=== PATIENT | male | born 1990 | race Caucasian/White ===

== ENCOUNTER 2017-05-03 09:27 | Day surgery (SDC) | payer OTHER ==
[2017-04-28 14:44] VITALS: BMI 25.0
[~2017-05-03 09:27] MED LIST: DEXAMETHASONE SOD PHOSPHATE 4 MG/ML 1 ML VIAL IV ONE; FAMOTIDINE 20 MG/2 ML VIAL IV ONE; LACTATED RINGERS 1,000 ML IV SCH; LIDOCAINE 1% 20 ML VIAL (10MG/ML) FOR IV START INTRADERMA PRN; ONDANSETRON 4 MG/2 ML VIAL IVP ONE; ceFAZolin 1,000 MG in DEXTROSE/WATER 1 50ML.BAG IV ONE; fentaNYL (PF) 50 MCG/ML 2 ML AMP IV PRN
[2017-05-03 09:56] VITALS: RESP 16
[2017-05-03] MEDS: OXYMETAZOLINE 0.05% NASL SPRAY 1 SPRAY BOTTLE NASAL ONE ×5 (09:58→10:19)
[2017-05-03] MEDS ORDERED: MIDAZOLAM 2 MG/2 ML VIAL ONE (10:44)
[2017-05-03] MEDS ORDERED: SUCCINYLCHOLINE CHLORIDE 100 MG/5 ML SYR IV ONE (10:44)
[2017-05-03] MEDS ORDERED: LIDOCAINE 1% INJ 10MG/ML (20 ML MDV) ONE (10:44)
[2017-05-03] MEDS ORDERED: DEXAMETHASONE SOD PHOS (MDV) 100 MG/10 ML VIAL ONE (10:44)
[2017-05-03] MEDS ORDERED: PROPOFOL 10 MG/ML 20 ML VIAL IV ONE (10:44)
[2017-05-03] MEDS ORDERED: fentaNYL (PF) 50 MCG/ML 2 ML AMP ONE (10:44)
[2017-05-03] MEDS ORDERED: LIDOCAINE 1%/EPI 1:200,000 MPF 10 ML VIAL SQ ONE ×2 (11:10)
[2017-05-03] MEDS ORDERED: BACITRACIN 500 UNIT/GM OINT 28.4 GM TUBE TOPICAL ONE (11:22)
--- NOTE | 2017-05-03 11:38 | P.OP ---
Date of Procedure: 05/03/17 Preoperative Diagnosis: Deviated nasal septum Inferior turbinate hypertrophy Postoperative Diagnosis: Same Procedure(s) Performed: Septoplasty Outfracture and submucous resection of the inferior turbinates Anesthesia: YISSELA Surgeon: Nolberto Navas Estimated Blood Loss (ml): 5 Pathology: other (Nasal septal bone and cartilage) Condition: stable Disposition: PACU Indications for Procedure: This is a 26-year-old white male with a history of chronic nasal airway obstruction bilaterally but left greater than right with notably the nasal septum as well as inferior turbinate hypertrophy Operative Findings: Nasal septum deviated to the left, inferior turbinate hypertrophy bilaterally Description of Procedure: The patient was brought in the operative suite and placed in a supine position. The patient underwent induction of general anesthesia with oral endotracheal intubation without difficulty. The patient was prepped and draped in usual aseptic fashion. 1% lidocaine with 1-100,000 epinephrine was infused submucosally both sides nasal septum. While this was taking vasoconstrictive effect the inferior turbinates were infractured with the Thurston elevator. Partial submucous resection of the inferior turbinates was performed with Coblation thus ablating a portion of the submucosal soft tissue and then outfractured with the Thurston elevator. A left hemitransfixion incision was made with the mucoperichondrial and mucoperiosteal flap on the left elevated. Bony cartilaginous junction was disarticulated and mucoperiosteal flap on the right was elevated. Bony nasal septal deformities were removed Kyra forceps and an inferior cartilaginous strip was removed leaving a full 1.5 cm caudal strut. Checking intranasally this corrected the nasoseptal deformities and the hemitransfixion incision was closed with a running 4-0 chromic. Bilateral Pierson airway splints coated bacitracin ointment were placed and sutured trans-septally with a 4-0 Vicryl suture. The patient was suctioned in oral gastric fashion. The patient was allowed to emerge from general anesthesia having tolerated procedure well was extubated in the operating suite and transferred to postop recovery area in satisfactory condition.
[2017-05-03 11:42] VITALS: TEMP 97.2
[2017-05-03 13:02] VITALS: BP 130/85; PULSE 59
== END 2017-05-03 13:25 | disposition home or self-care (01) ==
LOC: OR 09:27
PROVIDERS: ATTEND Otolaryngology
DX: J34.2 Deviated nasal septum (principal); J34.3 Hypertrophy of nasal turbinates; F17.210 Nicotine dependence, cigarettes, uncomplicated
CPT/HCPCS: 88300; 30520; 30930; J2250; J1100 ×2; J2405; J2001; J3010; J0330; J2704

== ENCOUNTER → 2017-12-26 | Outpatient (CLI) | payer OTHER ==
--- NOTE | 2017-12-26 21:54 | MR ---
EXAMINATION TYPE: MR knee LT wo con DATE OF EXAM: 12/26/2017 COMPARISON: Plain film 12/13/2017 HISTORY: Pain in left knee TECHNIQUE: Multiplanar, multisequence imaging of the left knee is performed without IV contrast. FINDINGS: MEDIAL MENISCUS: Posterior horn of the medial meniscus shows an undersurface tear, linear increased s ignal extends to the articular surface LATERAL MENISCUS: Anterior and posterior horns are intact without tear. CRUCIATE LIGAMENTS: The anterior and posterior cruciate ligaments are intact and unremarkable. COLLATERAL LIGAMENTS: The medial collateral ligament and lateral collateral ligament complex are inta ct and unremarkable. EXTENSOR MECHANISM: Visualized quadriceps and patellar tendons are intact. EFFUSION: No significant suprapatellar joint effusion. POPLITEAL CYST: No popliteal/cobian cyst. TRICOMPARTMENT SPACES: Maintained CARTILAGE: At the medial femoral condyle anteriorly there is some mild cartilage irregularity BONE MARROW SIGNAL: Subchondral marrow signal change present at the medial femoral condyle OTHER: No additional significant abnormality is appreciated. IMPRESSION: Posterior horn medial meniscus tear. Reactive possible reactive marrow signal changes at the medial f emoral condyle peripherally
== END | disposition home or self-care (01) ==
LOC: RADMRIMAIN 20:45
PROVIDERS: ATTEND Orthopaedic Surgery
DX: S83.242A Other tear of medial meniscus, current injury, left knee, initial encounter (principal)

== ENCOUNTER → 2018-03-14 | Outpatient (CLI) | payer OTHER ==
[2018-03-14 16:56] LABS: Basophils % (A) 0 %; Eosinophils # (A) 0.2 k/uL (0-0.7); Eosinophils % (A) 3 %; HCT 44.8 % (39.0-53.0); HGB 15.1 gm/dL (13.0-17.5); Lymphocytes # (A) 2.5 k/uL (1.0-4.8); Lymphocytes % (A) 36 %; MCH 30.8 pg (25.0-35.0); MCHC 33.7 g/dL (31.0-37.0); MCV 91.4 fL (80.0-100.0); Mean Platelet Volume 6.5; Monocytes # (A) 0.4 k/uL (0-1.0); Monocytes % (A) 6 %; Neutrophils # (A) 3.7 k/uL (1.3-7.7); Neutrophils % (A) 53 %; Platelet Count 314 k/uL (150-450); RDW 12.7 % (11.5-15.5); WBC 6.9 k/uL (3.8-10.6)
[2018-03-14 17:04] LABS: Potassium 4.1 mmol/L (3.5-5.1)
== END | disposition home or self-care (01) ==
LOC: LABPAT 15:57
PROVIDERS: ATTEND Orthopaedic Surgery
DX: Z01.812 Encounter for preprocedural laboratory examination (principal); M23.92 Unspecified internal derangement of left knee
CPT/HCPCS: 36415; 80051; 85025

== ENCOUNTER 2018-03-22 13:08 | Day surgery (SDC) | payer OTHER ==
[2018-03-21 08:17] VITALS: BMI 25.0
--- NOTE | 2018-03-21 20:11 | HP ---
HISTORY AND PHYSICAL REASON FOR ADMISSION: Surgery is 03/22/2018 HISTORY OF PRESENT ILLNESS: Kulwinder Wood is a 27-year-old patient seen with progressive left knee pain. We discussed treatment options. He elected to proceed with arthroscopy. Consent was obtained. PAST MEDICAL HISTORY: Noncontributory. PAST SURGICAL HISTORY: Noncontributory. DAILY MEDICATIONS: None. ALLERGIES: SEPTRA. SOCIAL HISTORY: Currently smokes cigarettes. PHYSICAL EXAMINATION: Evaluation of the left knee: Range of motion 0-130 degrees. Tenderness medial joint line. Positive medial Ryann's. Ligaments stable. Hip rotation without pain. Distal neurovascular exam intact. RADIOGRAPHS: Left knee radiographs fail to reveal any osseous abnormality. An MRI of the left knee revealed a medial meniscal tear. IMPRESSION: 1. Internal derangement, left knee with medial meniscal tear. 2. Tobacco use. PLAN: Left knee arthroscopy with partial meniscectomy and debridement. Surgery scheduled for 03/22/2018. MMODL / IJN: [id number] /
[~2018-03-22 13:08] MED LIST changes: +DEXAMETHASONE SOD PHOSPHATE 10 MG/ML 1 ML VIAL IV ONE; -DEXAMETHASONE SOD PHOSPHATE 4 MG/ML 1 ML VIAL IV ONE; -FAMOTIDINE 20 MG/2 ML VIAL IV ONE; +HYDROmorphone 1 MG/ML 1 ML SYRINGE IVP PRN; +MIDAZOLAM 2 MG/2 ML VIAL IV PRN; +SCOPOLAMINE 1.5MG/72HR PATCH TRANSDERM ONE; -ceFAZolin 1,000 MG in DEXTROSE/WATER 1 50ML.BAG IV ONE; +ceFAZolin IN SWFI 2 GM/20 ML SYRINGE IVP ONE; -fentaNYL (PF) 50 MCG/ML 2 ML AMP IV PRN
[2018-03-22 14:36] VITALS: TEMP 98.3
[2018-03-22] MEDS ORDERED: fentaNYL (PF) 50 MCG/ML 2 ML AMP ONE (14:54)
[2018-03-22] MEDS ORDERED: PROPOFOL 10 MG/ML 20 ML VIAL IV ONE (14:54)
[2018-03-22] MEDS ORDERED: KETOROLAC 30 MG/ML 1 ML VIAL ONE (14:54)
[2018-03-22] MEDS ORDERED: LIDOCAINE 1% INJ 10MG/ML (20 ML MDV) ONE (14:54)
[2018-03-22] MEDS ORDERED: MIDAZOLAM 2 MG/2 ML VIAL ONE (14:54)
[2018-03-22] MEDS ORDERED: BUPIVACAIN-EPI 0.25%-1:200,000 30 ML VIAL INTRAARTIC ONE (15:15)
--- NOTE | 2018-03-22 15:45 | P.OP ---
Date of Procedure: 03/22/18 Preoperative Diagnosis: Internal derangement left knee Postoperative Diagnosis: 1. Tear medial meniscus left knee 2. Medial plica left knee 3. Reactive synovitis medial and suprapatellar compartments left knee Procedure(s) Performed: 1. Arthroscopic partial medial meniscectomy left knee 2. Arthroscopic resection medial plica left knee 3. Arthroscopic partial synovectomy medial and suprapatellar compartments left knee Anesthesia: GETA, local Surgeon: Jaime Heredia Estimated Blood Loss (ml): 5 Pathology: none sent Condition: stable Disposition: PACU Indications for Procedure: 27-year-old patient seen with progressive left knee pain. After treatment options were discussed elected to proceed with arthroscopy. Operative Findings: see description of procedure Description of Procedure: Patient was taken to the operative suite. Patient underwent a general anesthetic by the department of anesthesia. Patient was given preoperative antibiotics. The left lower extremity was placed in a well-padded arthroscopic leg polk. The left leg was prepped and draped in the normal sterile orthopedic fashion. A lateral parapatellar and suprapatellar incision was made. Trochars were inserted. Arthroscopy was initiated. Suprapatellar pouch revealed diffuse thick reactive synovitis. The patellofemoral joint appeared to articulate congruently. There was grade 1 chondromalacia of the patella with no osteochondral tears present. The scope was guided into the medial gutter. There was a medial plica that seem to impinge along the medial femoral condyle with range of motion. The scope was then guided into the medial compartment. A medial parapatellar incision was made. Trocar inserted followed by probe. There was a small radial tear posterior horn medial meniscus. There was some reactive synovitis anteriorly. There was some mild grade 1 chondromalacia of the medial femoral condyle present. I performed a partial medial meniscectomy down to stable tissue. I performed a partial synovectomy decompressing the reactive synovitis. The residual meniscus was stable. There was good decompression of the synovitis. Scope and probe were then guided into the intercondylar notch. Cruciates were identified, probed and found to be stable. The scope and probe were then guided into lateral compartment. Lateral meniscus was probed and found to be stable. The lateral compartment was otherwise unremarkable. There was no synovitis present. The scope was in guided back into the suprapatellar compartment. I introduced a motorized shaver into the super patellar compartment. I made my way into the medial gutter and resected that medial plica. I debrided some piecemeal fragments of meniscus I encountered in the suprapatellar compartment. I performed a partial synovectomy decompressing the reactive synovitis. The shaver was removed. I took one more look on the entire knee, there was no residual debris. Instruments were now removed from the joint. The joint was infiltrated with .25% Marcaine. Steri-Strips were applied to the portal sites. Sterile dressings were applied. The patient was placed into a JAREN hose. No tourniquet was utilized. The patient was awakened, transferred to a bed and taken to recovery stable satisfactory condition.
[2018-03-22 16:05] VITALS: RESP 16
[2018-03-22 17:21] VITALS: BP 103/65; PULSE 69
== END 2018-03-22 17:48 | disposition home or self-care (01) ==
LOC: OR 13:08
PROVIDERS: ATTEND Orthopaedic Surgery
DX: S83.242A Other tear of medial meniscus, current injury, left knee, initial encounter (principal); M67.52 Plica syndrome, left knee; M65.9 Synovitis and tenosynovitis, unspecified; M22.42 Chondromalacia patellae, left knee; F17.210 Nicotine dependence, cigarettes, uncomplicated; Z79.1 Long term (current) use of non-steroidal anti-inflammatories (NSAID); Z88.1 Allergy status to other antibiotic agents; Z88.2 Allergy status to sulfonamides
CPT/HCPCS: 29881; J2250; J1100; J2405; J2001; J3010; J1885; J2704; J0690

== ENCOUNTER → 2020-04-24 | Outpatient (CLI) | payer BC ==
--- NOTE | 2020-04-24 20:39 | MR ---
EXAMINATION TYPE: MR knee LT wo con DATE OF EXAM: 04/24/2020 COMPARISON: MR 12/16/2017. HISTORY: Left knee pain for 3 months. TECHNIQUE: Multiplanar, multisequence imaging of the left knee is performed without IV contrast. FINDINGS: MEDIAL MENISCUS: Progression of horizontal oblique tear of the posterior horn, extending to the body. LATERAL MENISCUS: Anterior and posterior horns are intact without tear. CRUCIATE LIGAMENTS: The anterior and posterior cruciate ligaments are intact and unremarkable. COLLATERAL LIGAMENTS: The medial collateral ligament and lateral collateral ligament complex are inta ct and unremarkable. EXTENSOR MECHANISM: Visualized quadriceps and patellar tendons are intact. EFFUSION: Small knee joint effusion. POPLITEAL CYST: No popliteal/cobian cyst. TRICOMPARTMENT SPACES: Mild narrowing of the medial compartment. CARTILAGE: No significant tricompartmental chondral defect. BONE MARROW SIGNAL: No focal abnormal marrow signal is appreciated. OTHER: No additional significant abnormality is appreciated. IMPRESSION: Progression of medial meniscus posterior horn and body tear
== END | disposition home or self-care (01) ==
LOC: RADMRIMAIN 19:10
PROVIDERS: ATTEND Orthopaedic Surgery
DX: S83.242A Other tear of medial meniscus, current injury, left knee, initial encounter (principal)

== ENCOUNTER → 2020-06-22 | Outpatient (CLI) | payer BC ==
[2020-06-22 13:52] LABS: Basophils % (A) 0 %; Eosinophils # (A) 0.3 k/uL (0-0.7); Eosinophils % (A) 4 %; HCT 47.9 % (39.0-53.0); Lymphocytes # (A) 2.2 k/uL (1.0-4.8); Lymphocytes % (A) 35 %; MCH 31.1 pg (25.0-35.0); MCHC 33.5 g/dL (31.0-37.0); MCV 92.9 fL (80.0-100.0); Mean Platelet Volume 6.6; Monocytes # (A) 0.4 k/uL (0-1.0); Monocytes % (A) 6 %; Neutrophils # (A) 3.3 k/uL (1.3-7.7); Neutrophils % (A) 52 %; Platelet Count 290 k/uL (150-450); RBC 5.15 m/uL (4.30-5.90); RDW 12.3 % (11.5-15.5); WBC 6.3 k/uL (3.8-10.6)
== END | disposition home or self-care (01) ==
LOC: LABPAT 13:16
PROVIDERS: ATTEND Orthopaedic Surgery
DX: Z01.812 Encounter for preprocedural laboratory examination (principal); M23.92 Unspecified internal derangement of left knee
CPT/HCPCS: 80051; 85025

== ENCOUNTER 2020-07-02 13:01 | Day surgery (SDC) | payer BC ==
[2020-06-30 11:46] VITALS: BMI 26.4
--- NOTE | 2020-07-01 16:16 | HP ---
HISTORY AND PHYSICAL DATE OF SURGERY: 07/02/2020 Kulwinder Wood is a 29-year-old gentleman seen with progressive left knee pain. We discussed options for treatment. He elected to proceed with arthroscopy. Consent was obtained. PAST MEDICAL HISTORY: Noncontributory. PAST SURGICAL HISTORY: Knee arthroscopy. DAILY MEDICATIONS: None. ALLERGIES: SEPTRA. SOCIAL HISTORY: He smokes one pack of cigarettes daily. PHYSICAL EVALUATION OF THE LEFT KNEE: Range of motion is zero to 130. Mild effusion. Tenderness, medial joint line. Positive medial Ryann's. Ligaments stable. Hip rotation without pain. Distal neurovascular exam intact. RADIOGRAPHS: Left knee radiographs revealed mild osteoarthritis. MRI left knee revealed medial meniscal tear. IMPRESSION: Internal derangement of left knee with medial meniscal tear. PLAN: Left knee arthroscopy with partial meniscectomy, partial synovectomy and debridement. MMODL / IJN: [id number] /
[~2020-07-02 13:01] MED LIST changes: -DEXAMETHASONE SOD PHOSPHATE 10 MG/ML 1 ML VIAL IV ONE; +DEXAMETHASONE SOD PHOSPHATE 4 MG/ML 1 ML VIAL IV ONE; +HYDROmorphone 0.5 MG/0.5 ML SYRINGE IVP PRN; -HYDROmorphone 1 MG/ML 1 ML SYRINGE IVP PRN; +LIDOCAINE 1% (10MG/ML) FOR IV START INTRADERMA PRN; -LIDOCAINE 1% 20 ML VIAL (10MG/ML) FOR IV START INTRADERMA PRN; -SCOPOLAMINE 1.5MG/72HR PATCH TRANSDERM ONE; -ceFAZolin IN SWFI 2 GM/20 ML SYRINGE IVP ONE
[2020-07-02] MEDS ORDERED: PROPOFOL 10 MG/ML 20 ML VIAL IV ONE (15:27)
[2020-07-02] MEDS ORDERED: fentaNYL (PF) 50 MCG/ML 2 ML AMP ONE (15:27)
[2020-07-02] MEDS ORDERED: MIDAZOLAM 2 MG/2 ML VIAL ONE (15:27)
[2020-07-02] MEDS ORDERED: LIDOCAINE 1% INJ 10MG/ML (20 ML MDV) ONE (15:27)
[2020-07-02] MEDS ORDERED: BUPIVACAINE (PF) 0.25% 30 ML VIAL INTRAARTIC ONE (15:32)
[2020-07-02 16:19] VITALS: TEMP 96.8
--- NOTE | 2020-07-02 16:20 | P.OP ---
Date of Procedure: 07/02/20 Preoperative Diagnosis: Internal derangement left knee Postoperative Diagnosis: 1. Bucket-handle tear medial meniscus left knee 2. Reactive synovitis medial, lateral and suprapatellar compartments left knee Procedure(s) Performed: 1. Arthroscopic partial medial meniscectomy left knee 2. Arthroscopic partial synovectomy medial, lateral and suprapatellar compartments left knee Anesthesia: GETA, local Surgeon: Jaime Heredia Estimated Blood Loss (ml): 7 Pathology: none sent Condition: stable Disposition: PACU Indications for Procedure: 29-year-old patient seen with progressive left knee pain. After treatment options were discussed with him, he elected to proceed with arthroscopy. Operative Findings: See description of procedure Description of Procedure: Patient was taken to the operative suite. Patient underwent a general anesthetic by the department of anesthesia. Patient was given preoperative antibiotics. The left lower extremity was placed in a well-padded arthroscopic leg polk. The left leg was prepped and draped in the normal sterile orthopedic fashion. A lateral parapatellar and suprapatellar incision was made. Trochars were inserted. Arthroscopy was initiated. Suprapatellar pouch revea led diffuse thick reactive synovitis. The patellofemoral joint appeared to articulate congruently. There grade 1 chondromalacia changes of the patella with no osteochondral tears present. The scope was guided into the medial gutter. No loose bodies or plica were identified. The scope was then guided into the medial compartment. A medial parapatellar incision was made. Trocar inserted followed by probe. I immediately encountered a bucket-handle medial meniscal tear with the posterior horn invaginated along the anterior aspect. I reduced this bucket-handle tear. There was a white zone bucket-handle tear. There were grade 1 chondromalacia changes of the medial femoral condyle. There was thick reactive synovitis anteriorly. I performed a partial medial meniscectomy getting down to stable meniscal tissue. I performed a partial synovectomy decompressing the thick reactive synovitis. The residual meniscus was probed and found to be stable. There was good decompression of the s ynovitis. Scope and probe were then guided into the intercondylar notch. Cruciates were identified, probed and found to be stable. The scope and probe were then guided into lateral compartment. The lateral meniscus was probed and found to be stable. There was some thick reactive synovitis anteriorly. There was no significant chondromalacia present. I introduced a motorized shaver and performed a partial synovectomy decompressing the thick reactive synovitis. Shaver was removed. There was good decompression of the synovitis. The scope was in guided back into the suprapatellar compartment. I introduced a motorized shaver into the super patellar compartment. I debrided some piecemeal fragments of meniscus I encountered. I performed a partial synovectomy decompressing the thick reactive synovitis. Shaver was removed. There was good decompression of the synovitis. I took one more look on the entire knee, no residual debris. Instruments were now removed from the joint. The joint was infiltrated with .25% Marcaine. Steri-Strips were applied to the portal sites. Sterile dressings were applied. The patient was placed into a JAREN hose. No tourniquet was utilized. The patient was awakened, transferred to a bed and taken to recovery stable satisfactory condition.
[2020-07-02] MEDS ORDERED: KETOROLAC 15 MG/ML 1 ML VIAL IVP ONE (16:38)
[2020-07-02 17:40] VITALS: PULSE 71; RESP 16
[2020-07-02 17:47] VITALS: BP 115/74
== END 2020-07-02 17:30 | disposition home or self-care (01) ==
LOC: OR 13:01
PROVIDERS: ATTEND Orthopaedic Surgery
DX: M23.204 Derangement of unspecified medial meniscus due to old tear or injury, left knee (principal); M65.862 Other synovitis and tenosynovitis, left lower leg; Z98.890 Other specified postprocedural states; Z88.8 Allergy status to other drugs, medicaments and biological substances; F17.210 Nicotine dependence, cigarettes, uncomplicated; Z88.2 Allergy status to sulfonamides
CPT/HCPCS: 29881; 29876; J2250; J1100; J0690; J2405; J2001; J3010; J1885; J2704; J1170